=== PATIENT | female | born 1975 | race Caucasian/White ===

== ENCOUNTER 2019-05-02 11:37 | Day surgery (SDC) | payer OTHER ==
[2019-05-01 12:43] LABS: HCG,QUAL RESULT NEGATIVE (NEGATIVE)
[~2019-05-02] VITALS: Ht 154.9 cm; Wt 79.4 kg
[~2019-05-02 11:37] MED LIST: CEFAZOLIN 2 GM IVPB PREMIX 50 ML IV ONE
[2019-05-02] MEDS ORDERED: KETOROLAC TROMETHAMINE 30 MG VIAL IVP PRN (13:45)
[2019-05-02] MEDS ORDERED: ONDANSETRON HCL 4 MG/2 ML VIAL IVP PRN (13:45)
[2019-05-02] MEDS ORDERED: fentaNYL CITRATE/PF 100 MCG/2 ML AMP IVP PRN ×2 (13:45)
[2019-05-02] MEDS ORDERED: IOHEXOL 0 ML IV ONE (13:50)
[2019-05-02] MEDS ORDERED: NS IRRIG SOLN 1000 ML IR ONE (13:51)
[2019-05-02] MEDS ORDERED: PROPOFOL 200MG/ 20ML VIAL (DIPRIVAN) IV ONE (13:51)
[2019-05-02] MEDS ORDERED: SEVOFLURANE 15 MIN GAS INH ONE (13:51)
[2019-05-02] MEDS ORDERED: MIDAZOLAM HCL 5 MG/5 ML VIAL IVP ONE (13:51)
[2019-05-02] MEDS ORDERED: BUPIVACAINE /PF 0.25% 30 ML VIAL INJ ONE (13:51)
[2019-05-02] MEDS ORDERED: LR 1,000 ML IV.SOLN IV ONE (13:51)
[2019-05-02] MEDS ORDERED: fentaNYL CITRATE/PF 100 MCG/2 ML AMP IVP ONE (13:51)
[2019-05-02] MEDS ORDERED: POLYMYXIN 500,000/BACIT.10,000 UNITS in NS IRR 1 L IR ONE (13:52)
[2019-05-02] MEDS ORDERED: D5LR 1,000 ML IV SCH (15:12)
[2019-05-02] MEDS ORDERED: ACETAMINOPHEN 325 MG TABLET PO PRN (15:15)
[2019-05-02] MEDS ORDERED: DIPHENHYDRAMINE HCL 25 MG CAPSULE PO PRN (15:15)
[2019-05-02] MEDS ORDERED: MORPHINE 2 MG/ML INJ. SYRINGE IVP PRN (15:15)
[2019-05-02] MEDS ORDERED: HYDROcodone/ACETAMIN 5-325 MG TAB (NORCO/ VICODIN) PO PRN (15:15)
[2019-05-02] MEDS ORDERED: fentaNYL CITRATE/PF 100 MCG/2 ML AMP ONE (15:34)
[2019-05-02] MEDS ORDERED: KETOROLAC TROMETHAMINE 30 MG VIAL ONE (16:07)
[2019-05-02 18:16] VITALS: BP_SYST 113
== END 2019-05-02 18:00 | disposition home or self-care (01) ==
LOC: SDS 11:37 → SMU 11:38 → SDS 18:00
PROVIDERS: ATTEND Orthopaedic Surgery
DX: M96.671 Fracture of tibia or fibula following insertion of orthopedic implant, joint prosthesis, or bone plate, right leg (principal); I10 Essential (primary) hypertension; E66.3 Overweight; Z79.899 Other long term (current) drug therapy; Y83.8 Other surgical procedures as the cause of abnormal reaction of the patient, or of later complication, without mention of misadventure at the time of the procedure
CPT/HCPCS: 27829; 76000; 84703; C1713; J0690; J1885; J2250; J2704; J3010; J3490; J7120; Q9967